=== PATIENT | male | born 1960 | race Caucasian/White ===

== ENCOUNTER 2023-01-05 18:51 | Emergency (ER) | payer OTHER ==
[~2023-01-05] VITALS: Ht 182.9 cm; Wt 118.0 kg
[~2023-01-05 18:51] MED LIST: ASPIRIN EC81 MG PO; CALCIUM CITRAT1 EA10 PO; CALCIUM500 MG PO; CINNAMON PLUS1 EACH PO; CINNAMON500 MG PO; FISH OIL OMEGA1 EACH PO; FLOMAX0.4 MG PO; GLUCOSAMINE &1 EAC1 PO; IBUPROFEN400 MG PO; LISINOPRIL40 MG PO; MAGNESIUM250 M1 PO; MELATONIN1 MG PO; MULTI-DAY VITA1 EACH PO; NASACORT10.8 ML NAS; NORCO 5-325 TA1 EACH PO; OSTEO BI-FLEX1 EAC2 PO; TAMSULOSIN HCL0.4 MG PO; TYLENOL325 MG PO; VITAMIN B COMP1 EACH PO; VITAMIN D5000 UNIT PO
[2023-01-05 19:05] LABS: BASOPHILS 0.7 % (0-2); EOSINOPHILS 2.2 % (0-6); HEMATOCRIT 45.2 % (35.0-50.0); HEMOGLOBIN 15.2 g/dL (12.0-18.0); LYMPHOCYTES 32.6 % (24-44); MCH 30.1 (27-36); MCHC 33.7 g/dl (30-36); MCV 89.2 fl (81-99); MONOCYTES 6.3 % (0-12); NEUTROPHILS 58.2 % (39-80); PLATELET COUNT 332 K/uL (140-440); RBC 5.06 M/ul (4.3-5.7); RDW 13.4 (10.5-15.0)
[2023-01-05 19:21] LABS: ALBUMIN 4.2 g/dL (3.4-5.0); ALBUMIN/GLOBULIN RATIO 1.35 (1.1-2.4); ANION GAP 13.2 (7-21); BILIRUBIN, TOTAL 0.7 ng/dL (0.2-1.0); BUN/CREATININE RATIO 20.19 (6.0-28.6); CREATININE, SERUM 1.04 mg/dL (0.70-1.30); MAGNESIUM 2.2 mg/dL (1.8-2.4); POTASSIUM 4.2 mmol/L (3.5-5.1); PROTEIN, TOTAL 7.3 g/dL (6.4-8.2)
[2023-01-05 20:11] VITALS: BP 128/94
--- NOTE | 2023-01-05 22:31 | EKG ---
[facility] [address] [facility] [place] [address] Signed Normal sinus rhythm Minimal voltage criteria for LVH, may be normal variant ( R in aVL ) Borderline ECG No previous ECGs available Confirmed by Harvey Browne MD () on 01/05/2023 10:30:49 PM Electronically Signed By: HARVEY BROWNE MD 01/05/232230 PATIENT NAME: SHABANA RUSSELL Electrocardiogram DATE OF : 62 PHYSICIAN: HARVEY BROWNE MD REPORT #: [id number] REPORT IS CONFIDENTIAL AND NOT TO BE RELEASED WITHOUT AUTHORIZATION
== END 2023-01-05 20:15 | disposition home or self-care (01) ==
LOC: ED 18:51
PROVIDERS: Emergency Medicine
DX: R07.89 Other chest pain (principal); I10 Essential (primary) hypertension; E78.5 Hyperlipidemia, unspecified; Z87.891 Personal history of nicotine dependence; Z79.899 Other long term (current) drug therapy; Z79.82 Long term (current) use of aspirin
CPT/HCPCS: 36415; 71045; 80053; 83735; 84484; 85025; 85379; 93005; 93010; A9270

== ENCOUNTER 2024-06-17 12:15 | Emergency (ER) | payer OTHER ==
[~2024-06-17] VITALS: Ht 177.8 cm; Wt 113.7 kg
[2024-06-17] MEDS ORDERED: HYDROCODON-ACE1 EA11 PO (14:24)
[2024-06-17] MEDS ORDERED: PENICILLIN V P500 MG PO (14:24)
[2024-06-17 14:40] VITALS: BP 135/87
== END 2024-06-17 14:40 | disposition home or self-care (01) ==
LOC: ED 12:15
DX: K08.89 Other specified disorders of teeth and supporting structures (principal); I10 Essential (primary) hypertension; Z79.82 Long term (current) use of aspirin; Z79.899 Other long term (current) drug therapy; Z87.891 Personal history of nicotine dependence
CPT/HCPCS: 99282